=== PATIENT | male | born 1970 | race Caucasian/White ===

== ENCOUNTER 2018-05-28 19:08 | Emergency (ER) | payer OTHER ==
[~2018-05-28] VITALS: Ht 177.8 cm; Wt 81.6 kg
[~2018-05-28 19:08] MED LIST: METH-37 PO; TRAM-48 PO
[2018-05-28 19:22] LABS: BILIRUBIN,URINE NEGATIVE (NEG); CLARITY,URINE CLOUDY; COLOR,URINE AMBER; NITRITE,URINE NEGATIVE (NEG); PROTEIN,URINE >=300 mg/dL (NEG-TRACE)
[2018-05-28 19:39] LABS: BACTERIA,URINE FEW /HPF (0-FEW); RBC,URINE TNTC /HPF (0-2)
[2018-05-28] MEDS ORDERED: IV NORMAL SALINE 1000ML BAG 1,000 ML IV SCH (19:58)
[2018-05-28] MEDS ORDERED: KETOROLAC 30 MG/ML VIAL. IV ONE (20:00)
[2018-05-28] MEDS ORDERED: KETOROLAC 30 MG/ML VIAL. ONE (20:05)
[2018-05-28 20:25] LABS: BASO # 0.2 x10^3/uL (0.0-0.2); BASO % 1 % (0-3); EOS # 0.3 x10^3/uL (0.0-0.7); EOS % 2 % (0-3); HEMATOCRIT 41.1 % (39.0-53.0); HEMOGLOBIN 14.2 g/dL (13.0-17.5); LYMPH # 2.5 x10^3/uL (1.0-4.8); LYMPH % 15 % (24-48); MEAN CORPUSCULAR HEMOGLOBIN 32 pg (25-35); MEAN CORPUSCULAR HGB CONC 35 g/dL (31-37); MEAN CORPUSCULAR VOLUME 92 fL (79-100); MONO # 1.9 x10^3/uL (0.0-1.1); MONO % 11 % (0-9); NEUT # 12.3 x10^3uL (1.8-7.7); NEUT % 72 % (31-73); PLATELET COUNT 253 x10^3/uL (140-400); RED BLOOD COUNT 4.49 x10^6/uL (4.30-5.70); RED CELL DISTRIBUTION WIDTH 13.5 % (11.5-14.5); WHITE BLOOD COUNT 17.2 x10^3/uL (4.0-11.0)
[2018-05-28] MEDS ORDERED: DIPH25CA58 PO (20:26)
[2018-05-28] MEDS ORDERED: GABA-586 PO (20:26)
[2018-05-28 20:36] LABS: CALCIUM 9.1 mg/dL (8.5-10.1); CREATININE 1.1 mg/dL (0.7-1.3); GFR 71.1; POTASSIUM 4.1 mmol/L (3.5-5.1)
[2018-05-28 20:41] LABS: ALBUMIN 3.9 g/dL (3.4-5.0); ALBUMIN/GLOBULIN RATIO 1.1 (1.0-1.7); TOTAL BILIRUBIN 0.3 mg/dL (0.2-1.0); TOTAL PROTEIN 7.6 g/dL (6.4-8.2)
--- NOTE | 2018-05-28 20:42 | PHYS DOC ---
Past Medical History Past Medical History: Other Additional Past Medical Histor: Previous fx to hip,ribs and shoulder blade. Past Surgical History: Appendectomy, Other Additional Past Surgical Histo: Chest tube. Alcohol Use: None Drug Use: None Adult General Chief Complaint Chief Complaint: BLOOD IN URINE [facility] HPI Patient is a 47 year old Male who presents with patient states for the last 6 months he has had frequent urination and some burning when he urinates but states has gotten worsening now he has blood in his urine as of last night. Patient states that he still has the frequency and his right flank is hurting. The pain a 10 out of 10. He has no fever. Patient denies any nausea vomiting, shortness of air, chest pain or abdominal pain. Patient states he has not taken any medication for. He is allergic to penicillins. He states that he took Benadryl as is night meds and some lisinopril tonight before he came in. Patient has a history of restless leg syndrome, hypertension, insomnia. Patient' s blood pressure is 135/68, 84 heart rate, 98.4 temporal. Review of Systems Review of Systems Constitutional: Denies fever or chills [] Eyes: Denies change in visual acuity, redness, or eye pain [] HENT: Denies nasal congestion or sore throat [] Respiratory: Denies cough or shortness of breath [] Cardiovascular: No additional information not addressed in HPI [] GI: Denies abdominal pain, nausea, vomiting, bloody stools or diarrhea [] : Dysuria and hematuria [] Musculoskeletal: Right flank back pain or joint pain [] Integument: Denies rash or skin lesions [] Neurologic: Denies headache, focal weakness or sensory changes [] Endocrine: Denies polyuria or polydipsia [] All other systems were reviewed and found to be within normal limits, except as documented in this note. Current Medications Current Medications Current Medications Medications (Trade) Dose Ordered Sig/[place]kin Start Time Stop Time Status Last Admin Dose Admin Ceftriaxone Sodium 50 ml @ 100 mls/hr 1X ONCE 05/28/18 21:00 05/28/18 21:29 DC 05/28/18 21:14 100 MLS/HR Ketorolac Tromethamine (Toradol 30mg Vial) 30 mg STK-MED ONCE 05/28/18 20:05 05/28/18 20:06 DC Sodium Chloride 1,000 ml @ 1,000 mls/hr Q1H 05/28/18 19:58 05/28/18 20:57 DC 05/28/18 20:29 1,000 MLS/HR Allergies Allergies Allergies Coded Allergies Type Severity Reaction Last Updated Verified Penicillins Allergy Intermediate Unknown reaction -- had rx when 3 yrs old Yes Physical Exam Physical Exam Constitutional: Well developed, well nourished, no acute distress, non-toxic appearance. [] HENT: Normocephalic, atraumatic, bilateral external ears normal, oropharynx moist, no oral exudates, nose normal. [] Eyes: PERRLA, EOMI, conjunctiva normal, no discharge. [] Neck: Normal range of motion, no tenderness, supple, no stridor. [] Cardiovascular:Heart rate regular rhythm, no murmur [] Lungs & Thorax: Bilateral breath sounds clear to auscultation [] Abdomen: Bowel sounds normal, soft, no tenderness, no masses, no pulsatile masses. [] Skin: Warm, dry, no erythema, no rash. [] Back: No tenderness, CVA tenderness. [] Extremities: No tenderness, no cyanosis, no clubbing, ROM intact, no edema. [] Neurologic: Alert and oriented X 3, normal motor function, normal sensory function, no focal deficits noted. [] Psychologic: Affect normal, judgement normal, mood normal. [] Current Patient Data Vital Signs Vital Signs Date Time Temp Pulse Resp B/P (MAP) Pulse Ox O2 Delivery O2 Flow Rate FiO2 05/28/18 20:32 70 16 123/73 (90) 98 05/28/18 19:27 98.4 Room Air 98.4 Lab Values Laboratory Tests Test 05/28/18 19:10 05/28/18 20:14 05/28/18 21:16 Urine Collection Type Unknown Urine Color Valeria Urine Clarity Cloudy Urine pH 7.0 Urine Specific [place] 1.025 Urine Protein >=300 mg/dL (NEG-TRACE) Urine Glucose (UA) Negative mg/dL (NEG) Urine Ketones (Stick) Trace mg/dL (NEG) Urine Blood Large (NEG) Urine Nitrite Negative (NEG) Urine Bilirubin Negative (NEG) Urine Urobilinogen Dipstick 1.0 mg/dL (0.2 mg/dL) Urine Leukocyte Esterase Small (NEG) Urine RBC Tntc /HPF (0-2) Urine WBC 11-20 /HPF (0-4) Urine Bacteria Few /HPF (0-FEW) White Blood Count 17.2 x10^3/uL (4.0-11.0) H Red Blood Count 4.49 x10^6/uL (4.30-5.70) Hemoglobin 14.2 g/dL (13.0-17.5) Hematocrit 41.1 % (39.0-53.0) Mean Corpuscular Volume 92 fL (79-100) Mean Corpuscular Hemoglobin 32 pg (25-35) Mean Corpuscular Hemoglobin Concent 35 g/dL (31-37) Red Cell Distribution Width 13.5 % (11.5-14.5) Platelet Count 253 x10^3/uL (140-400) Neutrophils (%) (Auto) 72 % (31-73) Lymphocytes (%) (Auto) 15 % (24-48) L Monocytes (%) (Auto) 11 % (0-9) H Eosinophils (%) (Auto) 2 % (0-3) Basophils (%) (Auto) 1 % (0-3) Neutrophils # (Auto) 12.3 x10^3uL (1.8-7.7) H Lymphocytes # (Auto) 2.5 x10^3/uL (1.0-4.8) Monocytes # (Auto) 1.9 x10^3/uL (0.0-1.1) H Eosinophils # (Auto) 0.3 x10^3/uL (0.0-0.7) Basophils # (Auto) 0.2 x10^3/uL (0.0-0.2) Segmented Neutrophils % 69 % (35-66) H Band Neutrophils % 3 % (0-9) Lymphocytes % 16 % (24-48) L Monocytes % 9 % (0-10) Eosinophils % 3 % (0-5) Toxic Vacuolation Slight Platelet Estimate Adequate (ADEQUATE) Sodium Level 137 mmol/L (136-145) Potassium Level 4.1 mmol/L (3.5-5.1) Chloride Level 100 mmol/L (98-107) Carbon Dioxide Level 28 mmol/L (21-32) Anion Gap 9 (6-14) Blood Urea Nitrogen 13 mg/dL (8-26) Creatinine 1.1 mg/dL (0.7-1.3) Estimated GFR (Cockcroft-Gault) 71.1 BUN/Creatinine Ratio 12 (6-20) Glucose Level 108 mg/dL (70-99) H Calcium Level 9.1 mg/dL (8.5-10.1) Total Bilirubin 0.3 mg/dL (0.2-1.0) Aspartate Amino Transferase (AST) 18 U/L (15-37) Alanine Aminotransferase (ALT) 28 U/L (16-63) Alkaline Phosphatase 114 U/L (46-116) Total Protein 7.6 g/dL (6.4-8.2) Albumin 3.9 g/dL (3.4-5.0) Albumin/Globulin Ratio 1.1 (1.0-1.7) Lactic Acid Level 0.4 mmol/L (0.4-2.0) Laboratory Tests 05/28/18 20:14 Laboratory Tests 05/28/18 20:14 EKG EKG [] Radiology/Procedures Radiology/Procedures CT ABD Impressions: [facility] [address] [place] [address] IMAGING REPORT Signed PATIENT: TAMIR CASTRO I ACCOUNT: [id number] : 1970 LOCATION: ER AGE: 47 SEX: M EXAM STATUS: REG ER ORD. PHYSICIAN: SHUBHAM CAST APRN REASON: flank pain, hematuria PROCEDURE: CT ABDOMEN PELVIS WO CONTRAST CT abdomen and pelvis without contrast TECHNIQUE: Helical multiplanar reconstructed noncontrast CT imaging of the abdomen and pelvis was acquired. HISTORY: Right flank pain and hematuria. Abdomen findings: Lung bases unremarkable. Disc bulges and osteophytes with spinal canal and neural foraminal stenoses L4-L5 and L5-S1. No nephroureterolithiasis or hydronephrosis. Liver, gallbladder, spleen, adrenals, pancreas and kidneys are unremarkable. Aorta and iliac artery calcified plaque. GI tract demonstrates no obstruction or inflammatory change. Appendix poorly visualized may be absent or obscured by surrounding bowel loops. No abdominal fluid. Pelvis findings: Urinary bladder wall thickening. No bladder calculi. No edema surrounding the bladder. Prostate, rectum and bones are unremarkable. Old right pelvic deformity. No pelvic fluid. IMPRESSION: 1. Diffuse bladder wall thickening. No surrounding edema evident. This could be cystitis or bladder neoplasia. 2. No renal, ureteral or bladder calculi. No hydronephrosis. Exposure: One or more of the following individualized dose reduction techniques were utilized for this examination: 1. Automated exposure control 2. Adjustment of the mA and/or kV according to patient size 3. Use of iterative reconstruction technique Electronically signed by: Naz Akers MD (05/28/2018 8:49 PM) [facility] DICTATED and SIGNED BY: NAZ AKERS MD DATE: 05/28/182042 Course & Med Decision Making Course & Med Decision Making Patient is a 47 year old Male who presents with patient states for the last 6 months he has had frequent urination and some burning when he urinates but states has gotten worsening now he has blood in his urine as of last night. Patient states that he still has the frequency and his right flank is hurting. The pain a 10 out of 10. He has no fever. Patient denies any nausea vomiting, shortness of air, chest pain or abdominal pain. Patient states he has not taken any medication for. He is allergic to penicillins. He states that he took Benadryl as is night meds and some lisinopril tonight before he came in. Patient has a history of restless leg syndrome, hypertension, insomnia. Patient' s blood pressure is 135/68, 84 heart rate, 98.4 temporal. Abdomen is soft and nontender. Patient has right flank tenderness. Alert and oriented. Skin is pink warm and dry. Lungs are clear to auscultation all lobes. Heart rate regular no murmur. Chin has no extremity swelling. Patient is given Toradol in a normal saline bolus in the ER. Patient's white blood cell count of 17.2. His urine is infected. CT abdomen pelvis show 1. Diffuse bladder wall thickening. No surrounding edema evident. This could be cystitis or bladder neoplasia. 2. No renal, ureteral or bladder calculi. No hydronephrosis. Patient is given a dose of Rocephin in the ED. He will be discharged on ciprofloxacin and is to follow- up with his primary care within the next couple days. Dragon Disclaimer Dragon Disclaimer This electronic medical record was generated, in whole or in part, using a voice recognition dictation system. Departure Departure Impression: Primary Impression: Urinary tract infection Disposition: HOME, SELF-CARE Condition: LEFT WITHOUT BEING SEEN Referrals: GEETA GONZALEZ MD (PCP) Patient Instructions: Urinary Tract Infection Additional Instructions: Follow up with your doctor within the next couple of days. Scripts Tramadol Hcl (TRAMADOL HCL) 50 Mg Tablet 50 MG PO Q6HRS PRN for PAIN, #10 TAB Prov: SHUBHAM CAST APRN 05/28/18 Ciprofloxacin Hcl (CIPROFLOXACIN HCL) 500 Mg Tablet 1 TAB PO BID, #14 TAB Prov: SHUBHAM CAST APRN 05/28/18 Problem Qualifiers Primary Impression: Urinary tract infection Urinary tract infection type: acute cystitis Hematuria presence: with hematuria Qualified Codes: N30.01 - Acute cystitis with hematuria SHUBHAM CAST [employer]UXILI[employer] POWER EQUIPMENT OPERATOR May 28, 2018 20:42
--- NOTE | 2018-05-28 20:53 | RAD ---
CT abdomen and pelvis without contrast TECHNIQUE: Helical multiplanar reconstructed noncontrast CT imaging of the abdomen and pelvis was acquired. HISTORY: Right flank pain and hematuria. Abdomen findings: Lung bases unremarkable. Disc bulges and osteophytes with spinal canal and neural foraminal stenoses L4-L5 and L5-S1. No nephroureterolithiasis or hydronephrosis. Liver, gallbladder, spleen, adrenals, pancreas and kidneys are unremarkable. Aorta and iliac artery calcified plaque. GI tract demonstrates no obstruction or inflammatory change. Appendix poorly visualized may be absent or obscured by surrounding bowel loops. No abdominal fluid. Pelvis findings: Urinary bladder wall thickening. No bladder calculi. No edema surrounding the bladder. Prostate, rectum and bones are unremarkable. Old right pelvic deformity. No pelvic fluid. IMPRESSION: 1. Diffuse bladder wall thickening. No surrounding edema evident. This could be cystitis or bladder neoplasia. 2. No renal, ureteral or bladder calculi. No hydronephrosis. Exposure: One or more of the following individualized dose reduction techniques were utilized for this examination: 1. Automated exposure control 2. Adjustment of the mA and/or kV according to patient size 3. Use of iterative reconstruction technique Electronically signed by: Jeff Akers MD (05/28/2018 8:49 PM) [facility]
[2018-05-28] MEDS ORDERED: CIPR500T PO (21:07)
[2018-05-28] MEDS ORDERED: TRAM50TA PO (21:26)
[2018-05-28 21:59] LABS: % BANDS 3 % (0-9); % EOS 3 % (0-5); % LYMPHS 16 % (24-48); % MONOS 9 % (0-10); % SEGS 69 % (35-66); PLT ESTIMATE ADEQUATE (ADEQUATE); TOXIC VACUOLATION SLIGHT
[2018-05-28 22:15] VITALS: BP 116/66
== END 2018-05-28 22:41 | disposition home or self-care (01) ==
LOC: ER 19:08
DX: N39.0 Urinary tract infection, site not specified (principal); I10 Essential (primary) hypertension; G25.81 Restless legs syndrome; Z90.89 Acquired absence of other organs; Z88.0 Allergy status to penicillin
CPT/HCPCS: 36415; 74176; 80053; 81001; 83605; 85007; 85025; 96365; 96375; 99285; J0690; J1885; J7030; 87086

== ENCOUNTER 2020-03-20 16:03 | Emergency (ER) | payer BC, OTHER ==
[~2020-03-20] VITALS: Ht 179.1 cm; Wt 86.3 kg
[~2020-03-20 16:03] MED LIST changes: +CIPR500T PO; +DIPH25CA58 PO; +GABA300C18 PO; +TRAM50TA PO
[2020-03-20 16:45] VITALS: BP 138/72
--- NOTE | 2020-03-20 17:31 | PHYS DOC ---
Past Medical History Past Medical History: Other Additional Past Medical Histor: Previous fx to hip,ribs and shoulder blade. Past Surgical History: Appendectomy, Other Additional Past Surgical Histo: Chest tube. Smoking Status: Current Every Day Smoker Alcohol Use: None Drug Use: None General Adult EDM: Chief Complaint: SHOUDLER HPI: HPI: Patient is a 49 year old male who presents with a 4-day history of acute left shoulder pain. Patient describes slowly progressive pain that sharp started with only motion 4 days ago and has progressed to pain at rest. He reports spasm musculature around the shoulder, decreased range of motion particularly not being able to wash his hair with his left hand last night. Today he reports it being acutely much worse and is not able to raise his left hand from a resting position. His pain radiates up his trapezius and to his posterior scapula. He describes the pain as a sharp stabbing sensation pointing to his AC joint describing it as 8 out of 10 at rest and "15 out of 10" with motion. Approximately 2 years ago he describes injuring his left shoulder while slipping on ice, he reached out to grab a truck door and stabilize himself. At this time he incurred a shoulder injury and has had intermittent pain since then with particular motion or activities. This was treated with direct corticosteroid injection and has never had imaging. 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 Patient not taking anything for pain. Past medical history: hypertension, prediabetic. Left shoulder repair secondary to accident and impacted humeral fracture. Social history: Patient denies tobacco consumption, Review of Systems: Review of Systems: Constitutional: Denies fever or chills Eyes: Denies redness or eye pain HENT: Denies nasal congestion or sore throat Respiratory: Denies cough or shortness of breath Cardiovascular: Denies chest pain or palpitations GI: Denies abdominal pain, nausea, or vomiting : Denies dysuria or hematuria Musculoskeletal: Denies back pain or joint pain Integument: Denies rash or skin lesions Neurologic: Denies headache, focal weakness or sensory changes Complete systems were reviewed and found to be within normal limits, except as documented in this note. Current Medications: Home meds: Lisinopril, Flexeril Allergies: Allergies: Allergies Coded Allergies Type Severity Reaction Last Updated Verified Penicillins Allergy Intermediate Unknown reaction -- had rx when 3 yrs old 04/24/14 Yes Physical Exam: PE: Constitutional: Well developed, well nourished, patient appears to be in acute distress with apparent right shoulder pain. HENT: Normocephalic, atraumatic cranial nerves II through XII gross intact bilaterally. Eyes: PERRL, EOMI, conjunctiva normal, no discharge Neck: Normal range of motion, no tenderness, supple, no carotid bruits. Lungs & Thorax: Bilateral breath sounds clear to auscultation, no wheezing, patient not able to take a deep breath due to shoulder pain. Heart: Regular rate and rhythm no murmurs. S1 and S2 normal. S3 heard clearly S4 not heard. Abdomen: Soft, no tenderness bowel sounds present all 4 quadrants no tenderness to palpation.. Skin: Warm, dry, no erythema, no rash Back: No tenderness, no CVA tenderness Extremities: Patient completely unable to move left shoulder. ROM of right shoulder intact. 2+4 pulses in all 4 extremities. Neurologic: Alert and oriented X 3, normal motor function, normal sensory function, no focal deficits noted. Intact sensation over left palm and all digits. Psychologic: Affect normal, judgment normal Current Patient Data: Vital Signs: Vital Signs Date Time Temp Pulse Resp B/P (MAP) Pulse Ox O2 Delivery O2 Flow Rate FiO2 03/20/20 16:22 98.5 88 20 138/72 (94) 97 Room Air 98.5 EKG: EKG: [] Radiology/Procedures: Radiology/Procedures: X-ray left shoulder. Impression: No acute separation of the AC joint, no acute fracture seen, no osteoarthritis. No acute pathology Course & Med Decision Making: Course & Med Decision Making 49-year-old white male presents with left shoulder pain. Differential diagnosis: Supraspinatus tear, labral tear, AC joint inflammation, subacromial impingement Patient likely has chronic AC joint issues with acute bursitis and compensatory muscular spasm of trapezius and the muscles of the rotator cuff. Meloxicam 15 mg p.o. daily 10 days, Toradol 10 mg 4 times daily PO. Dragon Disclaimer: Nicole Disclaimer: This electronic medical record was generated, in whole or in part, using a voice recognition dictation system. Departure Departure Impression: Primary Impression: Left shoulder strain Qualified Codes: S46.912A - Strain of unspecified muscle, fascia and tendon at shoulder and upper arm level, left arm, initial encounter Disposition: 01 HOME, SELF-CARE Condition: STABLE Referrals: GEETA GONZALEZ MD (PCP) CHESTER ALARCON MD Patient Instructions: Shoulder Immobilizer, Shoulder Pain, [id number] Scripts Hydrocodone/Apap 5-325 (NORCO 5-325 TABLET) 1 Each Tablet 0.5-1 TAB PO PRN Q6HRS PRN for PAIN, #10 TAB 0 Refills Prov: DEA SHEIKH DO 03/20/20 Naproxen (NAPROXEN) 375 Mg Tablet 375 MG PO TID PRN PRN for PAIN, #30 TAB Prov: DEA SHEIKH DO 03/20/20 Justicifation of Admission Dx: Justifications for Admission: Justification of Admission Dx: N/A DEA SHEIKH DO Mar 20, 2020 17:31
--- NOTE | 2020-03-20 17:33 | RAD ---
SHOULDER 2+V LEFT 03/20/2020 5:04 PM INDICATION: Pain COMPARISON: None available. TECHNIQUE: 3 views of the left foot are provided. FINDINGS/ IMPRESSION: There is no acute fracture or dislocation. Mild acromioclavicular osteoarthrosis. Bone mineralization is within normal limits. Regional soft tissues are within normal limits. There is no soft tissue gas or osseous erosion. No radiopaque foreign body. Electronically signed by: Kaye Burdick MD (03/20/2020 5:30 PM) [facility]
[2020-03-20] MEDS ORDERED: HYDR-3164 PO (17:56)
[2020-03-20] MEDS ORDERED: NAPR-695 PO (17:56)
[2020-03-20] MEDS ORDERED: KETOROLAC 30 MG/ML VIAL. IM ONE (18:30)
== END 2020-03-20 18:30 | disposition home or self-care (01) ==
LOC: ER 16:03
DX: S46.812A Strain of other muscles, fascia and tendons at shoulder and upper arm level, left arm, initial encounter (principal); R20.2 Paresthesia of skin; F17.200 Nicotine dependence, unspecified, uncomplicated; Z90.89 Acquired absence of other organs; Z98.890 Other specified postprocedural states; W00.0XXA Fall on same level due to ice and snow, initial encounter; Y93.89 Activity, other specified; Y92.89 Other specified places as the place of occurrence of the external cause; Y99.8 Other external cause status
CPT/HCPCS: 29105; 73030; 96372; 99283; J1885